=== PATIENT | female | born 1950 | race African-American/Black ===

== ENCOUNTER 2022-06-01 12:45 | Emergency (ER) | payer SELFPAY ==
[~2022-06-01] VITALS: Ht 170.2 cm; Wt 79.0 kg
[2022-06-01 12:49] VITALS: BP 141/82
[2022-06-01] MEDS ORDERED: KETOROLAC 60MG/2ML VIAL IM ONE (13:15)
[2022-06-01] MEDS ORDERED: IBUP-2028 MT (14:57)
[2022-06-01] MEDS ORDERED: KETOROLAC 60MG/2ML VIAL IM NR (15:00)
== END 2022-06-01 15:48 | disposition home or self-care (01) ==
LOC: ER 12:45
DX: S76.011A Strain of muscle, fascia and tendon of right hip, initial encounter (principal); W01.0XXA Fall on same level from slipping, tripping and stumbling without subsequent striking against object, initial encounter; Y93.89 Activity, other specified; Y92.832 Beach as the place of occurrence of the external cause
CPT/HCPCS: 73502; 96372; 99283; J1885